=== PATIENT | female | born 1990 | race Caucasian/White ===

== ENCOUNTER 2023-05-10 12:49 | Emergency (ER) | payer OTHER ==
[~2023-05-10] VITALS: Ht 160 cm; Wt 64.0 kg
[2023-05-10 12:58] VITALS: O2SAT 100
[2023-05-10] MEDS ORDERED: OXYCODONE HCL 5MG TABLET PO ONE (14:45)
[2023-05-10] MEDS ORDERED: OXYC-662 MT (15:24)
[2023-05-10 16:44] VITALS: BP 138/77; PULSE 74; RESP 16; TEMP 97.7
== END 2023-05-10 16:49 | disposition home or self-care (01) ==
LOC: ER 13:05
DX: S82.54XA Nondisplaced fracture of medial malleolus of right tibia, initial encounter for closed fracture (principal); Z88.7 Allergy status to serum and vaccine; Z94.4 Liver transplant status; Z98.890 Other specified postprocedural states; W19.XXXA Unspecified fall, initial encounter; Y93.89 Activity, other specified; Y92.89 Other specified places as the place of occurrence of the external cause; Y99.8 Other external cause status
CPT/HCPCS: 81025; 73610; 73630; 29515; 99284; Z7610